=== PATIENT | male | born 1995 | race Caucasian/White ===

== ENCOUNTER 2022-05-01 21:53 | Emergency (ER) | payer OTHER ==
[~2022-05-01] VITALS: Ht 180.3 cm; Wt 86.0 kg
[2022-05-01 22:02] VITALS: BP 111/70
[2022-05-01] MEDS ORDERED: ONDANSETRON 4MG ODT PO STA (22:41)
[2022-05-01] MEDS ORDERED: VISCOUS LIDOCAINE 2% 15 ML UDC PO STA (22:41)
[2022-05-01] MEDS ORDERED: MAGNESIUM/ALUMINUM HYDROXIDE/SIMETHICONE 30ML UDC PO STA (22:41)
[2022-05-01 23:46] LABS: HEMATOCRIT. 45.5 % (42.0-52.0); HEMOGLOBIN. 15.6 g/dL (14.0-18.0); MEAN CORPUSCULAR HEMOGLOBIN 29.5 pg (28.0-32.0); MEAN CORPUSCULAR VOLUME 86.2 fL (80.0-94.0); MEAN PLATELET VOLUME 7.8 fl (7.4-10.4); PLATELET 203 x1000/uL (130-400); PROTHROMBIN TIME 10.7 sec (9.6-11.0); RED BLOOD CELL COUNT 5.28 mill/uL (4.7-6.1); RED CELL DISTRIBUTION WIDTH 14.2 % (11.6-14.6)
[2022-05-02 00:13] LABS: CHLORIDE 105 mEq/L (98-107)
[2022-05-02] MEDS ORDERED: VISCOUS LIDOCAINE 2% 15 ML UDC PO NR (00:30)
[2022-05-02] MEDS ORDERED: MAGNESIUM/ALUMINUM HYDROXIDE/SIMETHICONE 30ML UDC PO NR (00:30)
[2022-05-02] MEDS ORDERED: ONDANSETRON 4MG ODT PO NR (00:30)
[2022-05-02 00:48] LABS: CLARITY URINE CLEAR (CLEAR); COLOR URINE YELLOW (YELLOW); KETONES URINE NEGATIVE (NEGATIVE); LEUKOCYTE ESTERASE URINE NEGATIVE (NEGATIVE); NITRITE URINE NEGATIVE (NEGATIVE); OCCULT BLOOD URINE NEGATIVE (NEGATIVE); PH URINE 6.5 (4.5-8.0); PROTEIN URINE NEGATIVE (NEGATIVE); SPECIFIC GRAVITY URINE 1.008 (1.005-1.030); UROBILINOGEN URINE 0.2 E.U./dL (0.2-1.0)
[2022-05-02] MEDS ORDERED: ONDA4TAB50 MT (00:53)
[2022-05-02 01:19] LABS: *AMPHETAMINES SCREEN URINE NEGATIVE (NEGATIVE); *BARBITURATES SCREEN URINE NEGATIVE (NEGATIVE); *BENZODIAZEPINES SCREEN URINE NEGATIVE (NEGATIVE); *COCAINE SCREEN URINE NEGATIVE (NEGATIVE); CANNABINOID URINE SCREEN NEGATIVE (NEGATIVE); METHADONE URINE SCREEN NEGATIVE (NEGATIVE); OPIATES URINE SCREEN NEGATIVE (NEGATIVE); PHENCYCLIDINE URINE SCREEN NEGATIVE (NEGATIVE)
[2022-05-02 01:26] LABS: ETHANOL BLOOD < 10 mg/dL
[2022-05-02 05:34] LABS: PLATELET ESTIMATE NORMAL
== END 2022-05-02 01:40 | disposition home or self-care (01) ==
LOC: ER 21:53
DX: K52.9 Noninfective gastroenteritis and colitis, unspecified (principal); R10.33 Periumbilical pain
CPT/HCPCS: 36415; 80053; 80305; 80320; 81003; 83690; 85025; 85610; 99284; Q0162; G0480

== ENCOUNTER 2022-05-22 21:14 | Emergency (ER) | payer OTHER ==
[~2022-05-22 21:14] MED LIST: ONDA4TAB50 MT
== END 2022-05-22 23:06 | disposition left against medical advice (07) ==
LOC: ER 21:14
DX: Z53.21 Procedure and treatment not carried out due to patient leaving prior to being seen by health care provider (principal)